=== PATIENT | female | born 1990 | race Caucasian/White ===

== ENCOUNTER 2022-03-02 13:29 | Inpatient (IN) | payer MEDICAID ==
[~2022-03-02] VITALS: Ht 160 cm; Wt 89.8 kg
[2022-03-03] MEDS ORDERED: OXYTOCIN/0.9 % SODIUM CHLORIDE 1,000 ML IV SCH ×2 (00:15→14:15)
[2022-03-03] MEDS ORDERED: LR 1,000 ML IV SCH (00:15)
[2022-03-03] MEDS ORDERED: TERBUTALINE SULFATE 1 MG/ML VIAL SUBCUT PRN (00:15)
[2022-03-03] MEDS ORDERED: LR 1,000 ML IV ONE (00:15)
[2022-03-03 00:56] LABS: BASOPHILS % (AUTO) 0.3 % (0.0-2.0); EOSINOPHILS % (AUTO) 0.5 % (0.0-4.0); HEMATOCRIT 26.8 % (36-48); HEMOGLOBIN 8.7 g/dL (12.0-16.0); LYMPHOCYTES # (AUTO) 2.6 K/uL (1.0-5.5); LYMPHOCYTES % (AUTO) 28.4 % (20.5-51.5); MEAN CORPUSCULAR HEMOGLOBIN 24 pg (27-31); MEAN CORPUSCULAR HGB CONC 33 % (32-36); MEAN CORPUSCULAR VOLUME 72 fL (79.0-98.0); MONOCYTES # (AUTO) 0.6 K/uL (0.0-1.0); MONOCYTES % (AUTO) 6.7 % (1.7-9.3); NEUTROPHILS # (AUTO) 5.8 K/uL (1.8-7.7); NEUTROPHILS % (AUTO) 64.1 % (40.0-70.0); PLATELET COUNT (AUTO) 260 K/uL (130-430); RED CELL DISTRIBUTION WIDTH 14.4 % (9.0-15.0); WHITE BLOOD COUNT (AUTO) 9.1 K/uL (4.8-10.8)
[2022-03-03] MEDS ORDERED: DINOPROSTONE 10 MG SUPP VG ONE (01:08)
[2022-03-03] MEDS ORDERED: MORPHINE SULFATE 10 MG/ML VIAL IVP PRN (03:45)
[2022-03-03 04:50] VITALS: BP_SYST 144
[2022-03-03] MEDS ORDERED: ROPIVACAINE HCL/PF 0.2% 200 ML ONE (13:20)
[2022-03-03] MEDS ORDERED: fentaNYL CITRATE/PF 100 MCG/2 ML AMP ONE (13:20)
[2022-03-03] MEDS ORDERED: LR 500 ML IV ONE (14:00)
[2022-03-03] MEDS ORDERED: FENT2mCg/mL-ROPIVA0.2%/NS EPID 200 ML EP SCH (14:00)
[2022-03-03] MEDS ORDERED: OXYTOCIN/0.9 % SODIUM CHLORIDE 1,000 ML IV ONE (14:15)
[2022-03-03] MEDS ORDERED: HYDROCORTISONE 0.5% CREAM 28.4 GM CREAM.GM. TP PRN (14:15)
[2022-03-03] MEDS ORDERED: WITCH HAZEL LEAF 1 MED.PAD MED.PAD TP PRN (14:15)
[2022-03-03] MEDS ORDERED: DERMOPLAST SPRAY TP PRN (14:15)
[2022-03-03] MEDS ORDERED: OXYCODONE/ACETAMINOPHEN 5-325 TABLET PO PRN (14:15)
[2022-03-03] MEDS ORDERED: ANUSOL 1 EA SUPP.RECT (PREPARATION H) RC PRN (14:15)
[2022-03-03] MEDS ORDERED: LANOLIN 7 GM OINT. TP PRN (14:15)
[2022-03-03] MEDS ORDERED: DIPH-TET-PERTUS Vaccine 0.5 ML VIAL (ADACEL) I.M. PRN (14:15)
[2022-03-03] MEDS: IBUPROFEN 600 MG TABLET PO SCH (20:09)
[2022-03-03] MEDS ORDERED: SENNOSIDES/DOCUSATE SODIUM 1 TAB TABLET(SENOKOT-S) PO SCH (21:00)
[2022-03-03] MEDS ORDERED: TEMAZEPAM 15 MG CAPSULE PO PRN (21:00)
[2022-03-04] MEDS: IBUPROFEN 600 MG TABLET PO SCH ×2 (02:03→07:46)
[2022-03-04 07:19] LABS: BASOPHILS % (AUTO) 0.2 % (0.0-2.0); EOSINOPHILS # (AUTO) 0.1 K/uL (0.0-0.4); EOSINOPHILS % (AUTO) 0.7 % (0.0-4.0); HEMATOCRIT 24.7 % (36-48); HEMOGLOBIN 7.9 g/dL (12.0-16.0); LYMPHOCYTES # (AUTO) 2.3 K/uL (1.0-5.5); LYMPHOCYTES % (AUTO) 25.7 % (20.5-51.5); MEAN CORPUSCULAR HEMOGLOBIN 23 pg (27-31); MEAN CORPUSCULAR HGB CONC 32 % (32-36); MEAN CORPUSCULAR VOLUME 72 fL (79.0-98.0); MONOCYTES # (AUTO) 0.5 K/uL (0.0-1.0); MONOCYTES % (AUTO) 5.8 % (1.7-9.3); NEUTROPHILS % (AUTO) 67.6 % (40.0-70.0); PLATELET COUNT (AUTO) 233 K/uL (130-430); RED BLOOD CELL COUNT(AUTO) 3.41 MIL/uL (4.2-6.2); RED CELL DISTRIBUTION WIDTH 14.1 % (9.0-15.0); WHITE BLOOD COUNT (AUTO) 8.9 K/uL (4.8-10.8)
[2022-03-04 08:02] LABS: ALANINE AMINOTRANSFERASE 11 U/L (12-78); ALBUMIN 1.9 g/dL (3.4-4.8); ANION GAP 8 (5-15); ASPARTATE AMINOTRANSFERASE 17 U/L (10-37); CALCIUM 7.9 mg/dL (8.4-11.0); CHLORIDE 108 mmol/L (98-107); CREATININE 0.65 mg/dL (0.55-1.30); GLUCOSE 85 mg/dL (70-99); POTASSIUM 4.3 mmol/L (3.5-5.1); SODIUM SERUM 140 mmol/L (136-145); UREA NITROGEN, BLOOD 5 mg/dL (8-21)
[2022-03-04 08:19] LABS: TOTAL BILIRUBIN < 0.1 mg/dL (0.0-1.0)
[2022-03-04 08:24] LABS: GFR AFRICAN AMERICAN 136 mL/min (>90)
[2022-03-04] MEDS ORDERED: DOCUSATE SODIUM 100 MG CAPSULE PO SCH (09:00)
[2022-03-04] MEDS ORDERED: LR 1,000 ML IV ONE (13:30)
[2022-03-04] MEDS ORDERED: CEFAZOLIN 2 GM IVPB PREMIX 50 ML IV ONE (13:30)
[2022-03-04] MEDS ORDERED: BUPIVACAINE /PF 0.5% 30 ML VIAL ONE (16:31)
[2022-03-04] MEDS ORDERED: fentaNYL CITRATE/PF 100 MCG/2 ML AMP IVP PRN ×2 (17:30)
[2022-03-04] MEDS ORDERED: METOCLOPRAMIDE HCL 10 MG/2 ML VIAL IVP PRN (17:30)
[2022-03-04] MEDS ORDERED: ONDANSETRON HCL 4 MG/2 ML VIAL IVP PRN ×2 (17:30→22:45)
[2022-03-04 17:41] VITALS: BP_SYST 157
[2022-03-04] MEDS ORDERED: PROPOFOL 200MG/ 20ML VIAL (DIPRIVAN) IV ONE (17:45)
[2022-03-04] MEDS ORDERED: NS IRRIG SOLN 1000 ML IR ONE (17:45)
[2022-03-04] MEDS ORDERED: KETOROLAC TROMETHAMINE 30 MG VIAL ONE (17:45)
[2022-03-04] MEDS ORDERED: BUPIVACAINE /EPINEPHRINE/PF 0.25% 30 ML VIAL INJ ONE (17:45)
[2022-03-04] MEDS ORDERED: MIDAZOLAM HCL 5 MG/ML VIAL (VERSED) IV ONE (17:45)
[2022-03-04] MEDS ORDERED: LR 1,000 ML IV.SOLN IV ONE (17:45)
[2022-03-04] MEDS: fentaNYL CITRATE/PF 100 MCG/2 ML AMP ONE ×2 (17:55→17:57)
[2022-03-04] MEDS: OXYCODONE/ACETAMINOPHEN 5-325 TABLET PO PRN (19:54)
[2022-03-05] MEDS: IBUPROFEN 600 MG TABLET PO SCH ×2 (00:09→06:01)
[2022-03-05 06:06] LABS: HEPATITIS B SURFACE AG Negative (Negative)
[2022-03-05] MEDS: OXYCODONE/ACETAMINOPHEN 5-325 TABLET PO PRN (10:25)
[2022-03-05 15:44] LABS: RUBELLA AB, IgG 0.98 index (Immune >0.99)
== END 2022-03-05 10:50 | disposition home or self-care (01) | DRG 560 ==
LOC: SPU 23:15
PROVIDERS: ADMIT Obstetrics & Gynecology; ATTEND Obstetrics & Gynecology
PROC: 10E0XZZ Delivery of Products of Conception, External Approach (ICD-10-PCS; principal; 2022-03-03)
PROC: 0KQM0ZZ Repair Perineum Muscle, Open Approach (ICD-10-PCS; 2022-03-03)
PROC: 3E0R3BZ Introduction of Anesthetic Agent into Spinal Canal, Percutaneous Approach (ICD-10-PCS; 2022-03-03)
PROC: 00HU33Z Insertion of Infusion Device into Spinal Canal, Percutaneous Approach (ICD-10-PCS; 2022-03-03)
DX: O13.4 Gestational [pregnancy-induced] hypertension without significant proteinuria, complicating childbirth (principal); Z37.0 Single live birth; O70.1 Second degree perineal laceration during delivery; Z3A.39 39 weeks gestation of pregnancy; Z88.1 Allergy status to other antibiotic agents; Z88.8 Allergy status to other drugs, medicaments and biological substances; Z20.822 Contact with and (suspected) exposure to COVID-19
CPT/HCPCS: 36415; 80053; 81002; 85025; 86592; 86762; 86886; 86900; 86901; 87340; 88302; 94760; J1885; J2250; J2405; J2590; J2704; J3010; J3490; J7120